=== PATIENT | female | born 1960 | race Asian ===

== ENCOUNTER 2019-03-20 08:05 | Emergency (ER) | payer OTHER ==
[~2019-03-20] VITALS: Ht 154.9 cm; Wt 67.7 kg
[~2019-03-20 08:05] MED LIST: DSS100 PO; LISI-661 PO; METF-960 PO; METR250 PO
[2019-03-20 08:20] LABS: GLUCOSE,POINT OF CARE 157 MG/DL (70-110)
[2019-03-20] MEDS ORDERED: GEMF600T5 PO (08:22)
[2019-03-20] MEDS ORDERED: ASPI81 PO (08:22)
[2019-03-20] MEDS ORDERED: ATOR40TA28 PO (08:22)
[2019-03-20] MEDS ORDERED: GLIP10 PO (08:22)
[2019-03-20] MEDS ORDERED: CHOL100018 PO (08:22)
[2019-03-20] MEDS ORDERED: HYDR25TA84 PO (08:22)
[2019-03-20] MEDS ORDERED: LISI-660 PO (08:22)
[2019-03-20] MEDS ORDERED: OMEG-135 PO (08:22)
[2019-03-20] MEDS ORDERED: ASPIRIN 81 MG CHEWABLE TABLET PO ONE (08:30)
[2019-03-20 09:01] LABS: APPEARANCE,URINE CLEAR (CLEAR); BASOPHILS % (AUTO) 0.4 % (0.0-2.0); BILIRUBIN,URINE NEGATIVE (NEGATIVE); EOSINOPHILS % (AUTO) 2.9 % (1.0-6.0); GLUCOSE, URINE (UA) NEGATIVE (NEGATIVE); HEMATOCRIT 38.2 % (36-46); HEMOGLOBIN 11.8 g/dL (12.0-16.0); KETONES,URINE NEGATIVE (NEGATIVE); LEUKOCYTE ESTERASE ,URINE TRACE (NEGATIVE); LYMPHOCYTES # (AUTO) 1.7 K/uL (1.0-4.8); LYMPHOCYTES % (AUTO) 25.8 % (22.0-44.0); MEAN CORPUSCULAR HEMOGLOBIN 20.3 pg (26.0-34.0); MEAN CORPUSCULAR HGB CONC 30.8 G/dL (31.0-37.0); MEAN CORPUSCULAR VOLUME 66 fL (80-100); MONOCYTES # (AUTO) 0.5 K/uL (0.1-1.0); MONOCYTES % (AUTO) 7.2 % (2.0-9.0); NEUTROPHILS # (AUTO) 4.3 K/uL (1.8-7.7); NEUTROPHILS % (AUTO) 63.7 % (40.0-70.0); NITRATE,URINE NEGATIVE (NEGATIVE); OCCULT BLOOD,URINE NEGATIVE (NEGATIVE); PLATELET COUNT (AUTO) 330 K/uL (150-450); PROTEIN,URINE NEGATIVE (NEGATIVE); RED BLOOD CELL COUNT(AUTO) 5.79 MIL/uL (4.00-5.20); RED CELL DISTRIBUTION WIDTH 15.1 % (11.5-14.5); UROBILINOGEN,URINE 0.2 mg/dL (<=1.0)
[2019-03-20 09:16] LABS: BACTERIA,URINE None Seen /HPF (None Seen); RBC,URINE None Seen /HPF (0-2); SQUAMOUS EPITHELIAL CELL,UR Few /LPF (None Seen)
[2019-03-20 09:21] LABS: B-TYPE NATRIURETIC PEPTIDE 11 pg/mL (0-100)
[2019-03-20 09:22] LABS: ANION GAP 8 mmol/L (8-16); CARBON DIOXIDE 26 mmol/L (22-29); CHLORIDE 103 mmol/L (98-107); CREATININE 0.73 mg/dL (0.60-1.30); GLOMERULAR FILTR. RATE CALC > 60 mL/min (>60); GLUCOSE,RANDOM 163 mg/dL (70-110); POTASSIUM 4.5 mmol/L (3.5-5.1); SODIUM SERUM 137 mmol/L (136-145); UREA NITROGEN, BLOOD 17 mg/dL (7-18)
[2019-03-20 09:29] LABS: ALANINE AMINOTRANSFERASE 27 U/L (12-78); ALBUMIN 3.9 g/dL (3.4-5.0); ALKALINE PHOSPHATASE 67 U/L (46-116); BILIRUBIN,TOTAL 0.3 mg/dL (0.1-1.0); CREATINE KINASE, TOTAL ONLY 58 U/L (26-192); TOTAL PROTEIN, SERUM 8.4 g/dL (6.4-8.2)
[2019-03-20 09:38] LABS: ASPARTATE AMINOTRANSFERASE 16 U/L (15-37)
[2019-03-20 09:40] VITALS: BP 126/76
== END 2019-03-20 10:29 | disposition home or self-care (01) ==
LOC: EMS 08:05
DX: F41.9 Anxiety disorder, unspecified (principal); R20.0 Anesthesia of skin; F17.210 Nicotine dependence, cigarettes, uncomplicated; E11.9 Type 2 diabetes mellitus without complications; I10 Essential (primary) hypertension; Z79.82 Long term (current) use of aspirin; Z79.899 Other long term (current) drug therapy; Z91.040 Latex allergy status
CPT/HCPCS: 93005; 99406

== ENCOUNTER 2021-11-19 09:51 | Emergency (ER) | payer OTHER ==
[~2021-11-19] VITALS: Ht 149.9 cm; Wt 68.6 kg
[~2021-11-19 09:51] MED LIST changes: +ASPI-1450 PO; +ATOR40TA28 PO; +CHOL100018 PO; -DSS100 PO; +GEMF-77 PO; +GLIP10TA10 PO; +HYDR25TA84 PO; -LISI-661 PO; +LISI-892 PO; +METF-1211 PO; -METF-960 PO; -METR250 PO; +OMEG-108 PO
[2021-11-19] MEDS ORDERED: ASCO500 PO (10:18)
[2021-11-19] MEDS ORDERED: PIOG15TA6 PO (10:18)
[2021-11-19] MEDS ORDERED: MECO10005 PO (10:18)
[2021-11-19] MEDS ORDERED: ACAR50TA5 PO (10:18)
[2021-11-19] MEDS ORDERED: VALS40TA4 PO (10:18)
[2021-11-19] MEDS ORDERED: DULA0.75 SQ (10:18)
[2021-11-19 11:27] VITALS: BP 146/79
== END 2021-11-19 11:39 | disposition home or self-care (01) ==
LOC: EMS 09:56
DX: S09.90XA Unspecified injury of head, initial encounter (principal); E11.9 Type 2 diabetes mellitus without complications; E78.00 Pure hypercholesterolemia, unspecified; I10 Essential (primary) hypertension; M54.2 Cervicalgia; W01.10XA Fall on same level from slipping, tripping and stumbling with subsequent striking against unspecified object, initial encounter; Y93.89 Activity, other specified; Y92.89 Other specified places as the place of occurrence of the external cause; Y99.8 Other external cause status; Z91.040 Latex allergy status
CPT/HCPCS: 99282; Z7502

== ENCOUNTER → 2024-07-30 | Outpatient (CLI) | payer OTHER ==
[~2024-07-30] MED LIST changes: +ACAR50TA5 PO; +ASCO500 PO; +DULA0.75 SQ; -GEMF-77 PO; -GLIP10TA10 PO; +GLIP10TA17 PO; -HYDR25TA84 PO; -LISI-892 PO; +MECO10005 PO; -OMEG-108 PO; +OMEG-135 PO; +PIOG15TA6 PO; +VALS40TA4 PO
== END | disposition home or self-care (01) ==
LOC: RADMN 14:35
PROVIDERS: ATTEND Nurse Practitioner Family
DX: Z11.1 Encounter for screening for respiratory tuberculosis (principal); M41.84 Other forms of scoliosis, thoracic region
CPT/HCPCS: 71046